=== PATIENT | male | born 1980 | race Caucasian/White ===

== ENCOUNTER 2018-03-22 07:25 | Emergency (ER) | payer OTHER ==
[~2018-03-22] VITALS: Ht 170.2 cm; Wt 154.2 kg
[~2018-03-22 07:25] MED LIST: HYDROCODONE-AP1 EAC6 PO; IBUPROFEN 800800 M1 PO; MEDROLDOSEPACK PO; NORCO 5-325 TA1 EACH PO; OMEPRAZOLE; PENICILLIN VK500 MG PO
[2018-03-22] MEDS ORDERED: NORCO 5-325 TA1 EACH PO (07:49)
[2018-03-22] MEDS ORDERED: AMOXICILLIN 50500 MG PO (07:49)
[2018-03-22 08:18] VITALS: BP 146/79
== END 2018-03-22 08:19 | disposition home or self-care (01) ==
LOC: M.ERS 07:25
DX: K04.7 Periapical abscess without sinus (principal); J45.909 Unspecified asthma, uncomplicated; Z91.018 Allergy to other foods